=== PATIENT | female | born 1945 | race Caucasian/White ===

== ENCOUNTER 2016-09-15 09:15 | Observation (INO) | payer BC, MEDICARE ==
[~2016-09-15] VITALS: Ht 152.4 cm; Wt 81.6 kg
--- NOTE | 2016-09-16 08:10 | CO ---
ADMIT: 09/15/2016 RM/LOC: 501 [facility] MR#: [id number] [address] [id number] JONI GIBBONS [address] [place] [address] Consultation SEX: F AGE: 71 : 1945 DATE OF CONSULTATION: 09/15/2016 ATTENDING PHYSICIAN: Navi Weathers CONSULTING PHYSICIAN: Navi Weathers MD CHIEF COMPLAINT/HISTORY OF PRESENT ILLNESS: Joni Gibbons is being admitted to acute care due to persistent postoperative hypoxemia after a right rotator cuff surgery and shoulder decompression performed by Dr. Corrales earlier today. She has known underlying chronic obstructive pulmonary disease and had an exacerbation in August, but had been feeling well for the last week or 10 days, so was felt satisfactory to proceed with surgery. However, I discussed case with Dr. Corrales and anesthesia at the surgery center where the procedures are normally performed, and it was felt prudent to have this done at [place]. Because of Joni's COPD, we were concerned she might have some postoperative bronchospasm or hypoxemia as she in fact is displaying. She is now 3 hours postop and sats on 2 L are 90% to 92% and drifted down to the mid 80s when she is on room air. She is not having any chest discomfort nor has she had otherwise unstable vital signs. She is not visibly short of breath or coughing or wheezing. Nor she had been febrile. Her shoulder pain is reasonably well controlled at this time. She is also not experiencing any nausea or vomiting. PAST MEDICAL HISTORY: Chronic medical problems include chronic obstructive pulmonary disease, dyslipidemia, benign essential hypertension, obesity. Her only prior operation has been colonoscopy and hammertoe surgery. SOCIAL HISTORY: She is and her accompanies her in postop. FAMILY HISTORY: Positive for heart attack, hypertension, prostate cancer, and stroke in various first-degree relatives. HOSPITALIZATIONS: For pneumonia in 2006. ALLERGIES: NONE. MEDICATIONS: 1. Lipitor 20 mg daily. 2. Advair 250/50 one puff b.i.d. 3. Proventil HFA as a p.r.n. for breakthrough bronchospasm. 4. Benazepril 20 mg daily. 5. Hydrochlorothiazide 25 mg daily. 6. Verapamil extended release 240 mg once a day. 7. Aspirin 81 mg once a day. REVIEW OF SYSTEMS: As in the above HPI, no other pertinent review of systems. PHYSICAL EXAMINATION: VITAL SIGNS: Most recent set of vitals 97.8, 78, 20, 124/65, and at the bedside, her sat was 90%, it is now seen one at 94%. Once ADMIT: 09/15/2016 RM/LOC: 501 [facility] MR#: [id number] [address] [id number] JONI GIBBONS [address] [place] [address] Consultation SEX: F AGE: 71 : 1945 again, her sats drifted in the mid 80s when she is on room air. GENERAL STATUS: She is alert and oriented, in no acute distress. HEART: Regular rhythm. Rhythm is sinus. LUNGS: Diminished throughout but clear throughout. No crackles. No wheezes. No bronchospasm. She is not visibly dyspneic. ABDOMEN: Nontender to palpation. NECK: No masses. No lymphadenopathy. Oropharynx clear. EXTREMITIES: Lower extremities, no significant edema. NEURO: No obvious focal neurologic changes. PSYCH: She is calm. IMPRESSION: 1. Postoperative hypoxemia in a patient with chronic obstructive pulmonary disease. 2. Postoperative right rotator cuff repair and shoulder decompression. 3. Chronic hypertension. DISCUSSION: We would like to give her some bronchodilator treatments, incentive spirometry, oxygen of course, keep IV access, but no IV medications. She will be on Med/Surg floor with routine orders. We will adjust treatment as necessary. Probably this is some combination of her COPD, her narcotics being used or body habitus. Navi Weathers MD/ gemma JOB #: [id number] CC: Navi Weathers, Attending Physician Navi Weathers, Family Physician
[2016-09-18] MEDS ORDERED: HYDRODIURIL-DPS25 MG PO (11:27)
[2016-09-18] MEDS ORDERED: ADVAIR DIS1 PUFF/DO1 IH (11:28)
[2016-09-18] MEDS ORDERED: LOTENSIN DPS20 MG PO (11:28)
[2016-09-18] MEDS ORDERED: ISOPTIN SR240 MG PO (11:28)
[2016-09-18] MEDS ORDERED: SPIRIVA18 MCG IH (11:28)
[2016-09-18] MEDS ORDERED: PROVENTIL HFA6.7 GM IH (11:29)
[2016-09-18] MEDS ORDERED: HYDROCODONE 7.7.5 MG PO (11:29)
[2016-09-18] MEDS ORDERED: TYLENOL DPS325 MG PO (11:29)
--- NOTE | 2016-09-20 15:12 | OR ---
ADMIT: 09/15/2016 RM/LOC: 501 [facility] MR#: [id number] [facility]#: [id number] [address] [address] JONI GIBBONS [address] [place] [address] Operative/Delivery Room Report SEX: F AGE: 71 : 1945 SURGERY DATE: 09/15/2016 SURGEON: Jason Corrales MD PREOPERATIVE DIAGNOSES: 1. Right large rotator cuff tear. 2. AC arthritis. 3. Partial biceps tendon rupture. POSTOPERATIVE DIAGNOSES: 1. Right large chronic rotator cuff tear, moderate retraction. 2. Symptomatic AC arthritis. 3. Impingement syndrome. 4. Near complete biceps tendon rupture. PROCEDURE: 1. Right shoulder diagnostic arthroscopy. 2. Arthroscopic subacromial decompression. 3. Arthroscopic distal clavicle excision. 4. Arthroscopic biceps tenotomy. 5. Mini open chronic rotator cuff repair. ONCOLOGY PHYSICIAN ASSISTANT: SHANNA Pena. COMPLICATIONS: None. BLOOD LOSS: 25 mL. DESCRIPTION OF PROCEDURE: The patient was taken to the operating room, received a general anesthetic. She was placed in a semi-beach chair position. The right shoulder was prepped and draped in standard fashion. A posterior portal was made. The scope was positioned in the glenohumeral joint. The humeral head had some mild degenerative changes. Glenoid normal. There was some fraying in the anterior labrum we debrided. There was a near complete biceps tendon rupture. We went ahead through an anterior portal, did a biceps tenotomy, debrided the biceps stump. There was a very large chronic rotator cuff tear with moderate retraction. We put the scope in subacromial space, did a subacromial bursectomy. I cleaned out the undersurface of the acromion. We then mobilized the rotator cuff. We felt we could get the rotator cuff out to the articular margin and do a repair. At that point, we did subacromial ADMIT: 09/15/2016 RM/LOC: 501 [facility] MR#: [id number] [address] [address] JONI GIBBONS [address] [place] [place] [address] Operative/Delivery Room Report SEX: F AGE: 71 : 1945 decompression, anterior to posterolateral to medial towards the AC joint. We defined the distal end of clavicle, removed the distal 10 mm of clavicle through an anterior portal. At that point, we enlarged the lateral portal, split the deltoid fibers. We then mobilized the rotator cuff. We used a scorpion needle passer to first do a [id number] repair more medially. We then placed 3 sutures through the rotator cuff in a [place] fashion and did an anatomic repair out to the tuberosity. There was just some mild tension on the repair, but we did get it out to its anatomic insertion. At that point, we irrigated out the wound, repaired the deltoid split with 0 Vicryl, subcutaneous with 2-0 Vicryl, placed nylon in the skin. She had an interscalene block so no local was used. She was placed in an immobilizer, taken to recovery room in stable condition. No complications. Jason Corrales MD/ gemma JOB #: [id number] CC: Navi Weathers, Attending Physician Navi Weathers, Family Physician
--- NOTE | 2016-09-23 17:31 | HP ---
ADMIT: 09/15/2016 RM/LOC: [facility] MR#: [id number] [address] [place] [id number] ANTONIA GIBBONSN Anurag [address] [place] [address] Pre-OP History and Physical SEX: F AGE: 71 : 1945 DATE OF SERVICE: CHIEF COMPLAINT: Right shoulder pain. HISTORY OF PRESENT ILLNESS: The patient is a 71-year-old female. She has had chronic right shoulder discomfort. MRI shows a right large rotator cuff tear. She initially had an upper respiratory tract infection, this is now been cleared. She has been seen by Dr. Weathers. He has cleared her for surgery. She is now being admitted for right shoulder arthroscopy with rotator cuff repair. PAST MEDICAL HISTORY: Past medical problems include hypertension and COPD. MEDICATIONS: Include: 1. Aspirin. 2. Hydrochlorothiazide. 3. Benazepril. 4. Verapamil. ALLERGIES: NONE. SOCIAL HISTORY: Normally lives at home. REVIEW OF SYSTEMS: Negative. PHYSICAL EXAMINATION: GENERAL: Healthy appearing female. EXTREMITIES: She can only elevate to 90 degrees with significant supraspinatus weakness. Passively, we can get her to about 140. Some crepitus in shoulder arms, neurovascularly intact. DIAGNOSTIC DATA: X-rays AP, scapular Y shows advanced AC arthritis, type 2 ADMIT: 09/15/2016 RM/LOC: [facility] MR#: [id number] [address] [place] [id number] YUNI GIBBONSARTEMIO Osborn [address] [place] [address] Pre-OP History and Physical SEX: F AGE: 71 : 1945 acromion, and some narrowing of the subacromial space. MRI; shows a very large right rotator cuff tear with some retraction, possibly not repairable. IMPRESSION: Right chronic large rotator cuff tear. PLAN: At this point, we are going to proceed with right shoulder arthroscopy to evaluate her rotator cuff. If the rotator cuff is repairable, we will plan on proceeding with the decompression and distal clavicle excision. If the rotator cuff is not repairable, we will plan on doing arthroscopic debridement. She is aware of the risk, benefits, and option and agreed to proceed. She has again been seen and cleared by Dr. Weathers and cleared for surgery. Jason Corrales MD/ gemma JOB #: [id number] CC: Jason Corrales, Attending Physician UNKNOWN, Family Physician
== END 2016-09-17 12:23 | disposition home or self-care (01) ==
LOC: SSS 09:15 → 5MS 14:35 → SSS 14:35 → 5MS 17:35
PROVIDERS: ADMIT Orthopaedic Surgery
PROC: 0LS14ZZ Reposition Right Shoulder Tendon, Percutaneous Endoscopic Approach (ICD-10-PCS; principal; 2016-09-15)
PROC: 0LQ10ZZ Repair Right Shoulder Tendon, Open Approach (ICD-10-PCS; principal; 2016-09-15)
PROC: 0RBJ4ZZ Excision of Right Shoulder Joint, Percutaneous Endoscopic Approach (ICD-10-PCS; principal; 2016-09-15)
PROC: 0PB94ZZ Excision of Right Clavicle, Percutaneous Endoscopic Approach (ICD-10-PCS; principal; 2016-09-15)
PROC: 0RNJ4ZZ Release Right Shoulder Joint, Percutaneous Endoscopic Approach (ICD-10-PCS; 2016-09-15)
DX: M75.101 Unspecified rotator cuff tear or rupture of right shoulder, not specified as traumatic (principal); M75.41 Impingement syndrome of right shoulder; M13.811 Other specified arthritis, right shoulder; M66.811 Spontaneous rupture of other tendons, right shoulder; Z79.82 Long term (current) use of aspirin; E66.9 Obesity, unspecified; Z79.899 Other long term (current) drug therapy; I10 Essential (primary) hypertension; J44.9 Chronic obstructive pulmonary disease, unspecified

== ENCOUNTER → 2017-01-21 | Outpatient (CLI) | payer BC, MEDICARE ==
[~2017-01-21] MED LIST: ADVAIR DIS1 PUFF/DO1 IH; HYDROCODONE 7.7.5 MG PO; HYDRODIURIL-DPS25 MG PO; ISOPTIN SR240 MG PO; LOTENSIN DPS20 MG PO; PROVENTIL HFA6.7 GM IH; SPIRIVA18 MCG IH; TYLENOL DPS325 MG PO
== END | disposition home or self-care (01) ==
LOC: RAD.S 09:04
DX: Z12.31 Encounter for screening mammogram for malignant neoplasm of breast (principal)